=== PATIENT | female | born 1940 | race Caucasian/White ===

== ENCOUNTER 2025-01-29 15:32 | Emergency (ER) | payer MEDICARE, OTHER ==
[2025-01-29] MEDS ORDERED: Sodium Chloride 0.9% 10 ML Syringe FLUSH PRN (16:03)
[2025-01-29 16:22] LABS: BASOPHILS ABSOLUTE AUTO 0.06 10^3/uL (0.00-0.10); BASOPHILS PERCENT AUTO 0.8 % (0.0-1.0); EOSINOPHILS ABSOLUTE AUTO 0.09 10^3/uL (0.10-0.30); EOSINOPHILS PERCENT AUTO 1.3 % (1.0-3.0); IMMATURE GRAN ABSOLUTE AUTO 0.01 10^3/uL (0.00-0.04); IMMATURE GRAN PERCENT AUTO 0.1 % (0.0-0.4); LYMPHOCYTES ABSOLUTE AUTO 2.33 10^3/uL (1.00-4.00); LYMPHOCYTES PERCENT AUTO 32.4 % (20.0-40.0); MEAN PLATELET VOLUME 9.6 fL (7.4-10.4); MONOCYTES ABSOLUTE AUTO 1.02 10^3/uL (0.10-0.80); MONOCYTES PERCENT AUTO 14.2 % (2.0-8.0); NEUTROPHILS ABSOLUTE AUTO 3.69 10^3/uL (2.50-7.00); NEUTROPHILS PERCENT AUTO 51.2 % (50.0-70.0); PLATELET COUNT,PLT 383 10^3/uL (150-400); RED BLOOD CELL COUNT 3.29 10^6/uL (3.80-5.50); RED CELL DISTRIBUTION WIDTH 16.2 % (11.5-14.5); WHITE BLOOD CELL COUNT,WBC 7.20 10^3/uL (5.00-10.00)
[2025-01-29 16:35] LABS: B-TYPE NATRIURETIC PEPTIDE,BNP 81.0 pg/mL (0-100)
[2025-01-29 16:46] LABS: ALANINE AMINOTRANSFERASE,ALT 12.0 U/L (14-63); ASPARTATE AMNIOTRANSFERASE,AST 17.0 U/L (15-37); BILIRUBIN TOTAL 0.4 mg/dL (0.2-1.0); BLOOD UREA NITROGEN,BUN 28.0 mg/dL (7-18); CARBON DIOXIDE,CO2 25.3 mmol/L (21.0-32.0); CHLORIDE,CL 110.0 mmol/L (98-107); CREATININE 1.37 mg/dL (0.51-1.17); EST CRCL DRUG DOSING (CG) 26.4 mL/min; GLUCOSE RANDOM 88.0 mg/dL (70-140); POTASSIUM,K 4.3 mmol/L (3.5-5.1); PROTEIN TOTAL,TP 6.1 g/dL (6.4-8.2); SODIUM,NA 144.0 mmol/L (136-145)
[2025-01-29 16:49] LABS: ESTIMATED GFR 38.0 mL/min (>=60)
[2025-01-29] MEDS: Furosemide 40 MG/4 ML VIAL IVPUSH ONE (17:17)
== END 2025-01-29 18:25 | disposition home or self-care (01) ==
LOC: KA.ED 15:32
DX: R60.0 Localized edema (principal); R79.1 Abnormal coagulation profile; I10 Essential (primary) hypertension; Z88.0 Allergy status to penicillin; Z88.8 Allergy status to other drugs, medicaments and biological substances; Z88.2 Allergy status to sulfonamides; Z86.718 Personal history of other venous thrombosis and embolism; Z79.01 Long term (current) use of anticoagulants
CPT/HCPCS: 36415; 71045; 80053; 83880; 84484; 85025; 85379; 96374; 99284-25; A9270-GY; J1938

== ENCOUNTER 2025-02-02 20:12 | Inpatient (IN) | payer MEDICARE, OTHER ==
[2025-02-02 20:41] LABS: BASOPHILS ABSOLUTE AUTO 0.05 10^3/uL (0.00-0.10); BASOPHILS PERCENT AUTO 0.5 % (0.0-1.0); EOSINOPHILS ABSOLUTE AUTO 0.12 10^3/uL (0.10-0.30); EOSINOPHILS PERCENT AUTO 1.2 % (1.0-3.0); IMMATURE GRAN ABSOLUTE AUTO 0.02 10^3/uL (0.00-0.04); IMMATURE GRAN PERCENT AUTO 0.2 % (0.0-0.4); LYMPHOCYTES ABSOLUTE AUTO 2.30 10^3/uL (1.00-4.00); LYMPHOCYTES PERCENT AUTO 22.4 % (20.0-40.0); MEAN PLATELET VOLUME 9.8 fL (7.4-10.4); MONOCYTES ABSOLUTE AUTO 1.37 10^3/uL (0.10-0.80); MONOCYTES PERCENT AUTO 13.4 % (2.0-8.0); NEUTROPHILS ABSOLUTE AUTO 6.39 10^3/uL (2.50-7.00); NEUTROPHILS PERCENT AUTO 62.3 % (50.0-70.0); PLATELET COUNT,PLT 353 10^3/uL (150-400); RED BLOOD CELL COUNT 3.15 10^6/uL (3.80-5.50); RED CELL DISTRIBUTION WIDTH 15.4 % (11.5-14.5); WHITE BLOOD CELL COUNT,WBC 10.25 10^3/uL (5.00-10.00)
[2025-02-02 20:59] LABS: ALANINE AMINOTRANSFERASE,ALT 13.0 U/L (14-63); ASPARTATE AMNIOTRANSFERASE,AST 20.0 U/L (15-37); B-TYPE NATRIURETIC PEPTIDE,BNP 109.0 pg/mL (0-100); BILIRUBIN TOTAL 0.4 mg/dL (0.2-1.0); BLOOD UREA NITROGEN,BUN 35.0 mg/dL (7-18); CARBON DIOXIDE,CO2 24.8 mmol/L (21.0-32.0); CHLORIDE,CL 108.0 mmol/L (98-107); CREATININE 1.63 mg/dL (0.51-1.17); EST CRCL DRUG DOSING (CG) 22.19 mL/min; GLUCOSE RANDOM 109.0 mg/dL (70-140); POTASSIUM,K 4.7 mmol/L (3.5-5.1); PROTEIN TOTAL,TP 5.8 g/dL (6.4-8.2); SODIUM,NA 142.0 mmol/L (136-145)
[2025-02-02 21:00] LABS: ESTIMATED GFR 31.0 mL/min (>=60)
[2025-02-02] MEDS: Sodium Chloride 0.9% 10 ML Syringe FLUSH PRN (21:23)
[2025-02-02] MEDS: Furosemide 40 MG/4 ML VIAL IVPUSH ONE (21:23)
[2025-02-02 22:03] LABS: APPEARANCE,URINE CLEAR (CLEAR); GLUCOSE,URINE NEGATIVE (NEGATIVE); OCCULT BLOOD,URINE NEGATIVE (NEGATIVE)
[2025-02-02 22:10] LABS: EPITHELIAL CELLS,URINE FEW /LPF; SQUAMOUS EPITHELIAL CELLS,UR FEW /HPF (NOT SEEN)
[2025-02-02] MEDS ORDERED: Magnesium Hydroxide 400 MG/5 ML Susp 30 ML Cup PO PRN (23:23)
[2025-02-02] MEDS: Heparin Sodium 5,000 Units/ML Vial SUBCUT SCH (23:56)
[2025-02-03 07:37] LABS: BASOPHILS ABSOLUTE AUTO 0.07 10^3/uL (0.00-0.10); BASOPHILS PERCENT AUTO 0.8 % (0.0-1.0); EOSINOPHILS ABSOLUTE AUTO 0.14 10^3/uL (0.10-0.30); EOSINOPHILS PERCENT AUTO 1.6 % (1.0-3.0); IMMATURE GRAN ABSOLUTE AUTO 0.02 10^3/uL (0.00-0.04); IMMATURE GRAN PERCENT AUTO 0.2 % (0.0-0.4); LYMPHOCYTES ABSOLUTE AUTO 2.57 10^3/uL (1.00-4.00); LYMPHOCYTES PERCENT AUTO 29.6 % (20.0-40.0); MEAN PLATELET VOLUME 10.0 fL (7.4-10.4); MONOCYTES ABSOLUTE AUTO 1.14 10^3/uL (0.10-0.80); MONOCYTES PERCENT AUTO 13.1 % (2.0-8.0); NEUTROPHILS ABSOLUTE AUTO 4.74 10^3/uL (2.50-7.00); NEUTROPHILS PERCENT AUTO 54.7 % (50.0-70.0); PLATELET COUNT,PLT 351 10^3/uL (150-400); RED BLOOD CELL COUNT 3.05 10^6/uL (3.80-5.50); RED CELL DISTRIBUTION WIDTH 15.6 % (11.5-14.5); WHITE BLOOD CELL COUNT,WBC 8.68 10^3/uL (5.00-10.00)
[2025-02-03 07:46] LABS: BLOOD UREA NITROGEN,BUN 35.0 mg/dL (7-18); CARBON DIOXIDE,CO2 30.4 mmol/L (21.0-32.0); CHLORIDE,CL 108.0 mmol/L (98-107); CREATININE 1.42 mg/dL (0.51-1.17); EST CRCL DRUG DOSING (CG) 25.47 mL/min; GLUCOSE RANDOM 92.0 mg/dL (70-140); POTASSIUM,K 4.7 mmol/L (3.5-5.1); SODIUM,NA 144.0 mmol/L (136-145)
[2025-02-03 07:47] LABS: ESTIMATED GFR 36.0 mL/min (>=60)
[2025-02-03] MEDS: Furosemide 40 MG/4 ML VIAL IVPUSH SCH (08:36)
[2025-02-03] MEDS: Lutein/Minerals/Vitamins A, C & E Tab PO SCH (10:46)
[2025-02-04 08:52] LABS: BLOOD UREA NITROGEN,BUN 33.0 mg/dL (7-18); CARBON DIOXIDE,CO2 30.5 mmol/L (21.0-32.0); CHLORIDE,CL 104.0 mmol/L (98-107); CREATININE 1.19 mg/dL (0.51-1.17); EST CRCL DRUG DOSING (CG) 30.39 mL/min; GLUCOSE RANDOM 115.0 mg/dL (70-140); POTASSIUM,K 4.2 mmol/L (3.5-5.1); SODIUM,NA 142.0 mmol/L (136-145)
[2025-02-04 08:58] LABS: ESTIMATED GFR 45.0 mL/min (>=60)
== END 2025-02-04 13:54 | disposition home or self-care (01) | DRG 291 ==
LOC: KA.ED 20:12 → KA.MS 22:17
PROVIDERS: ADMIT Family Medicine; ATTEND Family Medicine
DX: I13.0 Hypertensive heart and chronic kidney disease with heart failure and stage 1 through stage 4 chronic kidney disease, or unspecified chronic kidney disease (principal); I50.33 Acute on chronic diastolic (congestive) heart failure; N17.9 Acute kidney failure, unspecified; N18.32 Chronic kidney disease, stage 3b; Z66 Do not resuscitate; E78.5 Hyperlipidemia, unspecified; M19.90 Unspecified osteoarthritis, unspecified site; Z96.652 Presence of left artificial knee joint; M81.0 Age-related osteoporosis without current pathological fracture; Z96.651 Presence of right artificial knee joint; I25.10 Atherosclerotic heart disease of native coronary artery without angina pectoris; E21.3 Hyperparathyroidism, unspecified; D63.1 Anemia in chronic kidney disease; E66.9 Obesity, unspecified; Z68.27 Body mass index [BMI] 27.0-27.9, adult; Z85.828 Personal history of other malignant neoplasm of skin; Z79.899 Other long term (current) drug therapy; Z88.2 Allergy status to sulfonamides; Z88.8 Allergy status to other drugs, medicaments and biological substances; Z98.890 Other specified postprocedural states; Z86.718 Personal history of other venous thrombosis and embolism; Z98.84 Bariatric surgery status; Z90.81 Acquired absence of spleen
CPT/HCPCS: 36415; 71045; 80048; 80053; 81001; 83880; 84484; 85025; 86140; 96374; 99223-GT; 99233-GT; 99239-GT; 99285-25; A9270-GY; J1644; J1938; Q3014

== ENCOUNTER 2025-02-05 22:53 | Inpatient (IN) | payer MEDICARE, OTHER ==
[2025-02-05 23:46] LABS: BASOPHILS ABSOLUTE AUTO 0.04 10^3/uL (0.00-0.10); BASOPHILS PERCENT AUTO 0.2 % (0.0-1.0); EOSINOPHILS ABSOLUTE AUTO 0.00 10^3/uL (0.10-0.30); EOSINOPHILS PERCENT AUTO 0.0 % (1.0-3.0); IMMATURE GRAN ABSOLUTE AUTO 0.09 10^3/uL (0.00-0.04); IMMATURE GRAN PERCENT AUTO 0.5 % (0.0-0.4); LYMPHOCYTES ABSOLUTE AUTO 1.40 10^3/uL (1.00-4.00); LYMPHOCYTES PERCENT AUTO 8.5 % (20.0-40.0); MEAN PLATELET VOLUME 9.5 fL (7.4-10.4); MONOCYTES ABSOLUTE AUTO 1.27 10^3/uL (0.10-0.80); MONOCYTES PERCENT AUTO 7.7 % (2.0-8.0); NEUTROPHILS ABSOLUTE AUTO 13.62 10^3/uL (2.50-7.00); NEUTROPHILS PERCENT AUTO 83.1 % (50.0-70.0); PLATELET COUNT,PLT 363 10^3/uL (150-400); RED BLOOD CELL COUNT 3.67 10^6/uL (3.80-5.50); RED CELL DISTRIBUTION WIDTH 14.7 % (11.5-14.5); WHITE BLOOD CELL COUNT,WBC 16.42 10^3/uL (5.00-10.00)
[2025-02-06 00:05] LABS: ALANINE AMINOTRANSFERASE,ALT 17.0 U/L (14-63); ASPARTATE AMNIOTRANSFERASE,AST 25.0 U/L (15-37); BILIRUBIN TOTAL 0.9 mg/dL (0.2-1.0); BLOOD UREA NITROGEN,BUN 34.0 mg/dL (7-18); CARBON DIOXIDE,CO2 21.4 mmol/L (21.0-32.0); CHLORIDE,CL 103.0 mmol/L (98-107); CREATININE 1.66 mg/dL (0.51-1.17); EST CRCL DRUG DOSING (CG) 21.78 mL/min; GLUCOSE RANDOM 122.0 mg/dL (70-140); POTASSIUM,K 3.5 mmol/L (3.5-5.1); PROTEIN TOTAL,TP 6.7 g/dL (6.4-8.2); SODIUM,NA 140.0 mmol/L (136-145)
[2025-02-06 00:06] LABS: ESTIMATED GFR 30.0 mL/min (>=60)
[2025-02-06] MEDS: Ketorolac 30 MG/ML SDV IVPUSH ONE (00:06)
[2025-02-06 00:09] LABS: B-TYPE NATRIURETIC PEPTIDE,BNP 68.0 pg/mL (0-100)
[2025-02-06 00:28] LABS: APPEARANCE,URINE CLEAR (CLEAR); GLUCOSE,URINE NEGATIVE (NEGATIVE); OCCULT BLOOD,URINE NEGATIVE (NEGATIVE)
[2025-02-06 00:35] LABS: EPITHELIAL CELLS,URINE FEW /LPF
[2025-02-06] MEDS: Heparin Sodium 5,000 Units/ML Vial SUBCUT SCH ×2 (03:37→21:18)
[2025-02-06 07:24] LABS: BASOPHILS ABSOLUTE AUTO 0.04 10^3/uL (0.00-0.10); BASOPHILS PERCENT AUTO 0.4 % (0.0-1.0); EOSINOPHILS ABSOLUTE AUTO 0.00 10^3/uL (0.10-0.30); EOSINOPHILS PERCENT AUTO 0.0 % (1.0-3.0); IMMATURE GRAN ABSOLUTE AUTO 0.01 10^3/uL (0.00-0.04); IMMATURE GRAN PERCENT AUTO 0.1 % (0.0-0.4); LYMPHOCYTES ABSOLUTE AUTO 1.95 10^3/uL (1.00-4.00); LYMPHOCYTES PERCENT AUTO 17.9 % (20.0-40.0); MEAN PLATELET VOLUME 9.6 fL (7.4-10.4); MONOCYTES ABSOLUTE AUTO 1.15 10^3/uL (0.10-0.80); MONOCYTES PERCENT AUTO 10.6 % (2.0-8.0); NEUTROPHILS ABSOLUTE AUTO 7.72 10^3/uL (2.50-7.00); NEUTROPHILS PERCENT AUTO 71.0 % (50.0-70.0); PLATELET COUNT,PLT 329 10^3/uL (150-400); RED BLOOD CELL COUNT 3.43 10^6/uL (3.80-5.50); RED CELL DISTRIBUTION WIDTH 15.4 % (11.5-14.5); WHITE BLOOD CELL COUNT,WBC 10.87 10^3/uL (5.00-10.00)
[2025-02-06 07:38] LABS: BLOOD UREA NITROGEN,BUN 35.0 mg/dL (7-18); CARBON DIOXIDE,CO2 28.2 mmol/L (21.0-32.0); CHLORIDE,CL 106.0 mmol/L (98-107); CREATININE 1.63 mg/dL (0.51-1.17); EST CRCL DRUG DOSING (CG) 22.19 mL/min; GLUCOSE RANDOM 107.0 mg/dL (70-140); POTASSIUM,K 4.2 mmol/L (3.5-5.1); SODIUM,NA 144.0 mmol/L (136-145)
[2025-02-06 07:46] LABS: ESTIMATED GFR 31.0 mL/min (>=60)
[2025-02-06] MEDS: Lutein/Minerals/Vitamins A, C & E Tab PO SCH (08:39)
[2025-02-06] MEDS: REMOVE LIDOCAINE TRDERM SCH (21:18)
[2025-02-07 07:29] LABS: BASOPHILS ABSOLUTE AUTO 0.08 10^3/uL (0.00-0.10); BASOPHILS PERCENT AUTO 1.0 % (0.0-1.0); EOSINOPHILS ABSOLUTE AUTO 0.11 10^3/uL (0.10-0.30); EOSINOPHILS PERCENT AUTO 1.3 % (1.0-3.0); IMMATURE GRAN ABSOLUTE AUTO 0.02 10^3/uL (0.00-0.04); IMMATURE GRAN PERCENT AUTO 0.2 % (0.0-0.4); LYMPHOCYTES ABSOLUTE AUTO 2.24 10^3/uL (1.00-4.00); LYMPHOCYTES PERCENT AUTO 27.1 % (20.0-40.0); MEAN PLATELET VOLUME 9.9 fL (7.4-10.4); MONOCYTES ABSOLUTE AUTO 0.92 10^3/uL (0.10-0.80); MONOCYTES PERCENT AUTO 11.1 % (2.0-8.0); NEUTROPHILS ABSOLUTE AUTO 4.90 10^3/uL (2.50-7.00); NEUTROPHILS PERCENT AUTO 59.3 % (50.0-70.0); PLATELET COUNT,PLT 322 10^3/uL (150-400); RED BLOOD CELL COUNT 3.40 10^6/uL (3.80-5.50); RED CELL DISTRIBUTION WIDTH 15.5 % (11.5-14.5); WHITE BLOOD CELL COUNT,WBC 8.27 10^3/uL (5.00-10.00)
[2025-02-07 07:38] LABS: ALANINE AMINOTRANSFERASE,ALT 14.0 U/L (14-63); ASPARTATE AMNIOTRANSFERASE,AST 19.0 U/L (15-37); BILIRUBIN TOTAL 1.0 mg/dL (0.2-1.0); BLOOD UREA NITROGEN,BUN 35.0 mg/dL (7-18); CARBON DIOXIDE,CO2 28.2 mmol/L (21.0-32.0); CHLORIDE,CL 109.0 mmol/L (98-107); CREATININE 1.31 mg/dL (0.51-1.17); EST CRCL DRUG DOSING (CG) 27.6 mL/min; GLUCOSE RANDOM 85.0 mg/dL (70-140); POTASSIUM,K 5.2 mmol/L (3.5-5.1); PROTEIN TOTAL,TP 6.0 g/dL (6.4-8.2); SODIUM,NA 146.0 mmol/L (136-145)
[2025-02-07 07:39] LABS: ESTIMATED GFR 40.0 mL/min (>=60)
== END 2025-02-07 12:45 | disposition home or self-care (01) | DRG 683 ==
LOC: KA.ED 22:53 → KA.MS 02-06 00:45
PROVIDERS: ADMIT Internal Medicine; ATTEND Internal Medicine
DX: R55 Syncope and collapse (principal); I11.0 Hypertensive heart disease with heart failure; N17.9 Acute kidney failure, unspecified; I13.0 Hypertensive heart and chronic kidney disease with heart failure and stage 1 through stage 4 chronic kidney disease, or unspecified chronic kidney disease; I95.89 Other hypotension; R29.6 Repeated falls; E86.0 Dehydration; N18.9 Chronic kidney disease, unspecified; Z66 Do not resuscitate; I50.9 Heart failure, unspecified; D72.828 Other elevated white blood cell count; E78.5 Hyperlipidemia, unspecified; I25.10 Atherosclerotic heart disease of native coronary artery without angina pectoris; M19.90 Unspecified osteoarthritis, unspecified site; F32.A Depression, unspecified; M81.0 Age-related osteoporosis without current pathological fracture; E21.3 Hyperparathyroidism, unspecified; E66.9 Obesity, unspecified; Z96.659 Presence of unspecified artificial knee joint; Z96.619 Presence of unspecified artificial shoulder joint; Z68.29 Body mass index [BMI] 29.0-29.9, adult; Z85.828 Personal history of other malignant neoplasm of skin; Z98.84 Bariatric surgery status; Z79.1 Long term (current) use of non-steroidal anti-inflammatories (NSAID); Y92.89 Other specified places as the place of occurrence of the external cause; Z88.2 Allergy status to sulfonamides; Z88.8 Allergy status to other drugs, medicaments and biological substances; Z79.899 Other long term (current) drug therapy; Z79.891 Long term (current) use of opiate analgesic
CPT/HCPCS: 12001; 36415; 70450; 71046; 72170; 80048; 80053; 81001; 83605; 83880; 85025; 96374; 97165-GO; 99223-GT; 99238-GT; 99283; 99285-25; A9270-GY; J1644; J1885; J7030; Q3014